=== PATIENT | female | born 1970 | race Caucasian/White ===

== ENCOUNTER → 2016-11-19 | Outpatient (CLI) | payer BC ==
[~2016-11-19] MED LIST: AUGMENTIN 875 M1 TAB PO; BACLOFEN20 MG PO; CLARITIN10 MG PO; CYCLOBENZAPR TAB 10M; HYDROCO/APAP TAB 10-; VICODIN HP 6601 TA1 PO
[2016-11-19 10:44] LABS: HEMOGLOBIN 12.3 g/dl (12.0-16.0); MEAN CORPUSCULAR HGB 29.8 pg (27.0-31.0); MEAN CORPUSCULAR HGB CONC 32.4 g/dl (33.0-37.0); MEAN PLATELET VOLUME 11.1 fl (9.6-12.3); RED BLOOD COUNT 4.13 10*6/uL (4.10-5.10); RED CELL DISTRI WIDTH 13.1 % (0-14.5); WHITE BLOOD COUNT 9.7 10*3/uL (4.8-10.8)
[2016-11-19 11:18] LABS: ALBUMIN 3.9 gm/dl (3.1-4.5); ALKALINE PHOSPHATASE 98 U/L (45-117); BILIRUBIN, TOTAL 0.4 mg/dl (0.2-1.0); BUN 11 mg/dl (7-24); CARBON DIOXIDE 28 mmol/L (21-32); CHLORIDE 107 mmol/L (98-107); EST GLOM FILT AFRICAN AMERICAN > 60 ml/min; GLUCOSE 115 mg/dL (65-99); POTASSIUM 4.9 mmol/L (3.5-5.1); SGOT/AST 7 IU/L (3-35); SGPT/ALT 18 U/L (12-78); SODIUM 142 mmol/L (136-145); TOTAL PROTEIN 7.5 gm/dL (6.4-8.2)
== END | disposition home or self-care (01) ==
LOC: LAB 10:11
PROVIDERS: Family Medicine
DX: M54.9 Dorsalgia, unspecified (principal); R25.2 Cramp and spasm

== ENCOUNTER → 2017-12-10 | Outpatient (CLI) | payer BC | END | disposition home or self-care (01) | LOC: MAMMO 10:45 | DX: N64.9 Disorder of breast, unspecified (principal); R92.8 Other abnormal and inconclusive findings on diagnostic imaging of breast; Z80.3 Family history of malignant neoplasm of breast ==

== ENCOUNTER → 2021-02-23 | Outpatient (CLI) | payer BC | END | disposition home or self-care (01) | LOC: COVID19 09:32 | PROVIDERS: ATTEND Family Medicine | DX: Z20.822 Contact with and (suspected) exposure to COVID-19 (principal) ==

== ENCOUNTER → 2021-05-01 | Outpatient (CLI) | payer BC | END | disposition home or self-care (01) | LOC: MAMMO 15:31 | PROVIDERS: ATTEND Nurse Practitioner Family | DX: Z12.31 Encounter for screening mammogram for malignant neoplasm of breast (principal) ==

== ENCOUNTER → 2024-07-20 | Outpatient (CLI) | payer BC | END | disposition home or self-care (01) | LOC: MAMMO 16:29 | PROVIDERS: ATTEND Family Medicine | DX: Z12.31 Encounter for screening mammogram for malignant neoplasm of breast (principal) ==

== ENCOUNTER → 2025-10-24 | Outpatient (CLI) | payer BC | END | disposition home or self-care (01) | LOC: MAMMO 13:44 | PROVIDERS: ATTEND Family Medicine | DX: Z12.31 Encounter for screening mammogram for malignant neoplasm of breast (principal); R92.333 Mammographic heterogeneous density, bilateral breasts ==

== ENCOUNTER → 2025-11-08 | Outpatient (CLI) | payer BC | END | disposition home or self-care (01) | LOC: US 13:49 | PROVIDERS: ATTEND Family Medicine | DX: R92.30 Dense breasts, unspecified (principal) ==